=== PATIENT | female | born 2000 | race Caucasian/White ===

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

== ENCOUNTER → 2023-03-26 | Outpatient (CLI) | payer OTHER | END | disposition home or self-care (01) | LOC: LAB SHORT 11:08 → LAB 11:08 | DX: L20.9 Atopic dermatitis, unspecified (principal); R21 Rash and other nonspecific skin eruption | CPT/HCPCS: 87210 ==